=== PATIENT | male | born 1995 | race Caucasian/White ===

== ENCOUNTER 2017-03-27 15:10 | Emergency (ER) | payer MEDICAID, MEDICARE ==
[2017-03-27 15:43] VITALS: BMI 34.4
--- NOTE | 2017-03-27 15:55 | ED PDOC ---
Arrival/HPI - General Chief Complaint: Male Genitourinary Time Seen by Provider: 03/27/17 15:47 Historian: Patient - History of Present Illness Narrative History of Present Illness (Text): 03/27/17 16:03 21yr old male presents today with concerns for STD. pt states 11 months ago he had unprotected sex and now he wants to be tested. pt denies pain. denies fever/ chills. denies discharge. no cp or sob. no abdominal pain. pt denies rash. pt states he has slight itching. no urinary symptoms. no other complaints. Past Medical History - Provider Review Nursing Documentation Reviewed: Yes - Travel History Have you recently traveled outside [place] w/in the past 3 mons?: No - Infectious Disease Hx of Infectious Diseases: None - Tetanus Immunization Tetanus Immunization: Unknown - Past Medical History Past Medical History: No Previous - Cardiac Hx Hypertension: No - Pulmonary Hx Tuberculosis: No - Neurological Hx Seizures: No - Hematological/Oncological Hx Cancer: No - Genitourinary/Gynecological Hx Sexually Transmitted Diseases: No - Psychiatric Hx Psychophysiologic Disorder: Yes Hx Substance Use: Yes (angelo) Other/Comment: ADHD - Surgical History Hx Orthopedic Surgery: Yes (right wrist rods) - Anesthesia Hx Anesthesia: Yes - Suicidal Assessment Feels Threatened In Home Enviroment: No Family/Social History - Physician Review Nursing Documentation Reviewed: Yes Family/Social History: Unknown Family HX Smoking Status: Current Some Days Smoker Hx Alcohol Use: No Hx Substance Use: Yes (angelo) Allergies/Home Meds Allergies/Adverse Reactions: Allergies No Known Allergies Allergy (Verified 05/08/16 13:27) Home Medications: Home Meds Medication Instructions Recorded Confirmed No Known Home Med 03/27/17 03/27/17 Review of Systems - Review of Systems Constitutional: absent: Fatigue, Fevers Respiratory: absent: SOB, Cough Cardiovascular: absent: Chest Pain, Palpitations Gastrointestinal: absent: Abdominal Pain, Constipation, Diarrhea, Nausea, Vomiting Genitourinary Male: Other (no penile discharge or testicular tenderness). absent: Dysuria, Frequency, Hematuria Musculoskeletal: absent: Arthralgias, Back Pain, Neck Pain Skin: Pruritis. absent: Rash Neurological: absent: Headache, Dizziness Psychiatric: absent: Anxiety, Depression Physical Exam Vital Signs Reviewed: Yes Temperature: Afebrile Blood Pressure: Normal Pulse: Regular Respiratory Rate: Normal Appearance: Positive for: Well-Appearing, Non-Toxic, Comfortable Pain Distress: None Mental Status: Positive for: Alert and Oriented X 3 - Systems Exam Head: Present: Atraumatic Mouth: Present: Moist Mucous Membranes Respiratory/Chest: Present: Clear to Auscultation Cardiovascular: Present: Regular Rate and Rhythm Abdomen: No: Tenderness Genitourinary Male: Present: Normal External Genitalia, Circumcised Penis, Other ( no rash, no erythema, no lesions; chaparoned by Kailash ESQUEDA patient managed care manager.). No: Lesions, Penile Discharge, Testicle Tenderness, Penile Swelling , Masses, Erythema, Testicle Swelling Back: Present: Normal Inspection Neurological: Present: GCS=15, Speech Normal Skin: Present: Warm, Dry, Normal Color. No: Rashes Psychiatric: Present: Alert, Oriented x 3 Medical Decision Making ED Course and Treatment: 03/27/17 16:11 pt is non toxic well appearing; no distress. wants std testing. no complaints. GC/Chlamydia sent. advised patient to f/u with PMD and CLINIC. advised immediate return if symptoms worsen,persist or if new symptoms develop. impression; STD concern, pruritis f/u with pmd return if symptoms worsen,persist or if new symptom develop. Disposition/Present on Arrival - Present on Arrival Any Indicators Present on Arrival: No History of DVT/PE: No History of Uncontrolled Diabetes: No Urinary Catheter: No History of Decub. Ulcer: No History Surgical Site Infection Following: None - Disposition Have Diagnosis and Disposition been Completed?: Yes Diagnosis: Concern about STD in male without diagnosis Disposition: HOME/ ROUTINE Disposition Time: 15:49 Patient Plan: Discharge Condition: GOOD Discharge Instructions (ExitCare): Safe Sex (ED) Additional Instructions: Follow up with the primary care physician/clinic within the next 2 days. return immediately if symptoms worsen,persist or if new symptoms develop. Referrals: [facility] [place]] - Follow up with primary
[2017-03-27 15:59] VITALS: BP 131/81; PULSE 81; RESP 16; TEMP 97.9; O2SAT 98
== END 2017-03-27 16:10 | disposition home or self-care (01) ==
LOC: ED 15:10
DX: Z71.1 Person with feared health complaint in whom no diagnosis is made (principal)

== ENCOUNTER 2017-12-30 05:37 | Emergency (ER) | payer SELFPAY ==
[2017-12-30 05:37] VITALS: BMI 29.2
[2017-12-30 05:45] VITALS: TEMP 98.1
--- NOTE | 2017-12-30 05:53 | ED PDOC ---
Arrival/HPI - General Chief Complaint: Dental Pain Time Seen by Provider: 12/30/17 05:47 Historian: Patient - History of Present Illness Narrative History of Present Illness (Text): 12/30/17 05:52 Kyle Ignacio is a 22 year old male, whose past medical history includes substance abuse, who presents to the Emergency department complaining of left lower dental pain for the past hour. Patient states he does not currently have a dentist. Patient denies any fever, chills, sore throat, headache, dizziness, or any other complaints. Time/Duration: 1 hour Symptom Onset: Gradual Symptom Course: Unchanged Activities at Onset: Light Context: Home Past Medical History - Provider Review Nursing Documentation Reviewed: Yes - Infectious Disease Hx of Infectious Diseases: None - Tetanus Immunization Tetanus Immunization: Unknown - Past Medical History Past Medical History: No Previous - Cardiac Hx Hypertension: No - Pulmonary Hx Tuberculosis: No - Neurological Hx Seizures: No - Hematological/Oncological Hx Cancer: No - Genitourinary/Gynecological Hx Sexually Transmitted Diseases: No - Psychiatric Hx Psychophysiologic Disorder: Yes Hx Substance Use: Yes (angelo) Other/Comment: ADHD - Surgical History Hx Orthopedic Surgery: Yes (right wrist rods) - Anesthesia Hx Anesthesia: Yes - Suicidal Assessment Feels Threatened In Home Enviroment: No Family/Social History - Physician Review Nursing Documentation Reviewed: Yes Family/Social History: Unknown Family HX Smoking Status: Current Some Days Smoker Hx Alcohol Use: No Hx Substance Use: Yes (angelo) Allergies/Home Meds Allergies/Adverse Reactions: Allergies No Known Allergies Allergy (Verified 05/08/16 13:27) Review of Systems - Physician Review All systems were reviewed & negative as marked: Yes - Review of Systems Constitutional: Normal. absent: Fevers Eyes: Normal ENT: Other (+left lower dental pain) Respiratory: Normal. absent: SOB, Cough Cardiovascular: Normal. absent: Chest Pain Gastrointestinal: Normal. absent: Abdominal Pain, Diarrhea, Nausea, Vomiting Genitourinary Male: Normal. absent: Dysuria, Frequency, Hematuria, Urinary Output Changes Musculoskeletal: Normal. absent: Back Pain, Neck Pain Skin: Normal. absent: Rash Neurological: Normal. absent: Headache, Dizziness Endocrine: Normal Hemo/Lymphatic: Normal Psychiatric: Normal Physical Exam Vital Signs Reviewed: Yes Vital Signs Temp Pulse Resp BP Pulse Ox 12/30/17 05:43 98.1 F 68 17 132/60 97 Temperature: Afebrile Blood Pressure: Normal Pulse: Regular Respiratory Rate: Normal Appearance: Positive for: Well-Appearing, Non-Toxic, Comfortable Pain Distress: None Mental Status: Positive for: Alert and Oriented X 3 - Systems Exam Head: Present: Atraumatic, Normocephalic Pupils: Present: PERRL Extroacular Muscles: Present: EOMI Conjunctiva: Present: Normal Mouth: Present: Moist Mucous Membranes, Other (Dental caries to left posterior molar, no gingival erythema or abscess noted) Pharnyx: Present: Normal. No: ERYTHEMA, EXUDATE, TONSILS ENLARGED, Peritonsilar Swelling, Uvular Deviation, Muffled/Hoarse Voice, Strider, Soft Palate/Uvular Edema Neck: Present: Normal Range of Motion. No: Meningeal Signs, MIDLINE TENDERNESS , Paraspinal Tenderness Upper Extremity: Present: Normal Inspection. No: Cyanosis, Edema Lower Extremity: Present: Normal Inspection. No: Edema Neurological: Present: GCS=15, CN II-XII Intact, Speech Normal Skin: Present: Warm, Dry, Normal Color. No: Rashes Psychiatric: Present: Alert, Oriented x 3, Normal Insight, Normal Concentration Medical Decision Making ED Course and Treatment: 12/30/17 05:52 Impression: 22 year old male complaining of left lower dental pain x1 hour. Plan: -- Toradol -- Reassess and disposition Progress Notes: - Medication Orders Current Medication Orders: Discontinued Medications Ketorolac Tromethamine (Toradol) 60 mg IM ONCE ONE Stop: 12/30/17 05:53 - Scribe Statement The provider has reviewed the documentation as recorded by the Lillian Mckeon Provider Scribe Attestation: All medical record entries made by the Scribe were at my direction and personally dictated by me. I have reviewed the chart and agree that the record accurately reflects my personal performance of the history, physical exam, medical decision making, and the department course for this patient. I have also personally directed, reviewed, and agree with the discharge instructions and disposition. Disposition/Present on Arrival - Present on Arrival Any Indicators Present on Arrival: No History of DVT/PE: No History of Uncontrolled Diabetes: No Urinary Catheter: No History of Decub. Ulcer: No History Surgical Site Infection Following: None - Disposition Have Diagnosis and Disposition been Completed?: Yes Diagnosis: Toothache, Dental caries Disposition: HOME/ ROUTINE Disposition Time: 05:57 Patient Plan: Discharge Condition: GOOD Discharge Instructions (ExitCare): Tooth Decay, Adult (DC), Dental Pain (DC) Additional Instructions: Must follow up with your dentist today Prescriptions: Ibuprofen [Motrin] 600 mg PO Q8 PRN #12 tab PRN Reason: Pain, Moderate (4-7) Forms: [employer] (Japanese)
[2017-12-30 06:23] VITALS: BP 135/60; PULSE 65; RESP 18; O2SAT 100
== END 2017-12-30 06:15 | disposition home or self-care (01) ==
LOC: ED 05:37
DX: K02.9 Dental caries, unspecified (principal); K08.89 Other specified disorders of teeth and supporting structures
CPT/HCPCS: 96372; 99282; J1885

== ENCOUNTER 2018-01-16 23:45 | Emergency (ER) | payer SELFPAY ==
[2018-01-16 23:58] VITALS: BP 127/87; PULSE 72; RESP 18; TEMP 98.6; O2SAT 99; BMI 31.2
== END 2018-01-17 00:10 | disposition left against medical advice (07) ==
LOC: ED 23:45
DX: Z02.89 Encounter for other administrative examinations (principal); L98.9 Disorder of the skin and subcutaneous tissue, unspecified

== ENCOUNTER 2018-01-20 12:51 | Emergency (ER) | payer SELFPAY ==
[2018-01-20 13:18] VITALS: BMI 25.0
--- NOTE | 2018-01-20 13:25 | ED PDOC ---
Arrival/HPI - General Historian: Patient - History of Present Illness Time/Duration: Prior to Arrival Symptom Onset: Sudden Symptom Course: Unchanged - General Chief Complaint: Psychiatric Evaluation Time Seen by Provider: 01/20/18 12:52 - History of Present Illness Narrative History of Present Illness (Text): 01/20/18 13:20 22 year old male, whose PMH includes substance abuse and is currently homeless, who presents to the emergency department, brought in by law enforcement due to locking himself in the bathroom of a [employer], prior to arrival. Police report patient refused to open the bathroom door and became agitated. Patient is currently denying any ETOH use or substance use. upon er, pt treatening staff very agited and state "i know karate"Patient denies other complaints. 01/20/18 18:41 (Ender Wood) Past Medical History - Provider Review Nursing Documentation Reviewed: Yes - Infectious Disease Hx of Infectious Diseases: None - Tetanus Immunization Tetanus Immunization: Unknown - Past Medical History Past Medical History: No Previous - Cardiac Hx Hypertension: No - Pulmonary Hx Tuberculosis: No - Neurological Hx Seizures: No - Hematological/Oncological Hx Cancer: No - Genitourinary/Gynecological Hx Sexually Transmitted Diseases: No - Psychiatric Hx Psychophysiologic Disorder: Yes Hx Substance Use: Yes (angelo) Other/Comment: ADHD - Surgical History Hx Orthopedic Surgery: Yes (right wrist rods) - Anesthesia Hx Anesthesia: Yes - Suicidal Assessment Feels Threatened In Home Enviroment: No Family/Social History - Physician Review Nursing Documentation Reviewed: Yes Family/Social History: Unknown Family HX Smoking Status: Current Some Days Smoker Hx Alcohol Use: No Hx Substance Use: Yes (angelo) Allergies/Home Meds Allergies/Adverse Reactions: Allergies No Known Allergies Allergy (Verified 05/08/16 13:27) Home Medications: Home Meds Medication Instructions Recorded Confirmed Unobtainable 01/21/18 01/21/18 Review of Systems - Physician Review All systems were reviewed & negative as marked: Yes - Review of Systems Respiratory: absent: SOB Cardiovascular: absent: Chest Pain Psychiatric: Other (agitated ) Physical Exam Vital Signs Reviewed: Yes Temperature: Afebrile Blood Pressure: Hypertensive Pulse: Regular Respiratory Rate: Normal Appearance: Positive for: Unkept Pain Distress: None Mental Status: Positive for: Alert and Oriented X 3, Agitated - Systems Exam Head: Present: Atraumatic, Normocephalic Pupils: Present: PERRL Extroacular Muscles: Present: EOMI Conjunctiva: Present: Normal Neurological: Present: GCS=15, CN II-XII Intact, Speech Normal Skin: Present: Warm, Dry, Normal Color. No: Rashes Psychiatric: Present: Alert, Oriented x 3, Normal Insight, Normal Concentration , Agitated Vital Signs Temp Pulse Resp BP Pulse Ox 01/21/18 07:00 98.7 F 72 18 142/86 98 01/21/18 05:00 85 16 129/79 99 01/21/18 01:00 89 16 127/79 100 01/20/18 20:00 98.4 F 89 18 129/82 100 01/20/18 17:14 80 18 124/72 96 01/20/18 15:11 76 18 129/84 97 01/20/18 13:09 98.5 F 82 18 139/92 H 99 Medical Decision Making - Lab Interpretations I have reviewed the lab results: Yes ED Course and Treatment: 01/20/18 20:[address] Valle by Dr. Dorantes for pending [facility] screener. (Anthony Valle) 01/20/18 Impression: 22 year old male who is agitated ro tox vs pysch Plan: -- Labs -- Urinalysis -- Reassess and disposition Progress Notes: 01/20/18 13:30 Patient became agitated at bedside but has calmed down and is currently eating a sandwich. 01/20/18 14:20 EKG: Ordered, reviewed, and independently interpreted the EKG. Rate : 80 BPM Rhythm : NSR Interpretation : No ST-segment elevations or depressions, no T-wave inversions, normal intervals. 01/20/18 14:20 Chest X-ray: Creator : Bladimir Lynn MD COMPARISON: 05/06/2016 FINDINGS: LUNGS: No active pulmonary disease. PLEURA: No significant pleural effusion identified, no pneumothorax apparent. CARDIOVASCULAR: Normal. OSSEOUS STRUCTURES: No significant abnormalities. VISUALIZED UPPER ABDOMEN: Normal. OTHER FINDINGS: None. IMPRESSION: No active disease. 01/20/18 15:26 pt again agited in er, threatening staff, threatening to attack staff. siddharth rod called. crsis worker bedside. pt sedated for safety of himself and staff. case discussed with dry mill worker, request screener. 01/20/18 15:28 pt medically cleared for pysch assessment and admission. 01/20/18 18:50 pt endorsed to [employer] pending [facility] screener. pt observed sleeping in nad ( Ender Wood) - Lab Interpretations Lab Results: 01/20/18 14:00 01/20/18 14:00 Lab Results 01/20/18 14:00: Alcohol, Quantitative < 10 01/20/18 14:00: Salicylates < 1 L, Acetaminophen < 10.0 L 01/20/18 14:00: Sodium 141, Potassium 4.0, Chloride 104, Carbon Dioxide 26, Anion Gap 15, BUN 11, Creatinine 0.9, Est GFR ( Amer) > 60, Est GFR (Non- Af Amer) > 60, Random Glucose 125 H, Calcium 9.4, Magnesium 2.1, Total Bilirubin 0.6, AST 38, ALT 22, Alkaline Phosphatase 40, Total Creatine Kinase 419 H, CK-MB (CK-2) 2.3, CK-MB (CK-2) % Cancelled, Total Protein 6.8, Albumin 4.2, Globulin 2.6, Albumin/Globulin Ratio 1.6 01/20/18 14:00: WBC 7.8, RBC 4.31, Hgb 13.3 L, Hct 38.1 L, MCV 88.4, MCH 30.9, MCHC 34.9, RDW 11.9, Plt Count 259, MPV 9.6, Gran % 68.8 H, Lymph % (Auto) 21.5 L, [place] % (Auto) 7.5 H, Eos % (Auto) 1.9, Baso % (Auto) 0.3, Gran # 5.38, Lymph # (Auto) 1.7, [place] # (Auto) 0.6, Eos # (Auto) 0.2, Baso # (Auto) 0.02 01/20/18 13:52: Urine Opiates Screen Negative, Urine Methadone Screen Negative, Ur Barbiturates Screen Negative, Ur Phencyclidine Scrn Positive H, Ur Amphetamines Screen Negative, U Benzodiazepines Scrn Negative, U Oth Cocaine Metabols Negative, U Cannabinoids Screen Negative 01/20/18 13:52: Urine Color Yellow, Urine Appearance Sl cloudy, Urine pH 7.0, Ur Specific [place] 1.020, Urine Protein 30 H, Urine Glucose (UA) Negative, Urine Ketones Trace H, Urine Blood Negative, Urine Nitrate Negative, Urine Bilirubin Negative, Urine Urobilinogen 4.0 H, Ur Leukocyte Esterase Negative, Urine RBC Negative, Urine WBC Negative, Hyaline Casts 0 - 2 - RAD Interpretation Radiology Orders: 01/20/18 13:50 CXR [CHEST PORTABLE] [RAD] Stat - Medication Orders Current Medication Orders: Discontinued Medications Diphenhydramine HCl (Benadryl) 50 mg PO STAT STA Stop: 01/21/18 05:59 Last Admin: 01/21/18 06:04 Dose: 50 mg Haloperidol (Haldol) 10 mg PO STAT STA PRN Reason: Protocol Stop: 01/21/18 05:59 Last Admin: 01/21/18 06:05 Dose: 10 mg Lorazepam (Ativan) 2 mg IM ONCE ONE PRN Reason: Protocol Stop: 01/20/18 13:41 Last Admin: 01/20/18 13:52 Dose: Lorazepam (Ativan) 2 mg IM ONCE ONE PRN Reason: Protocol Stop: 01/20/18 22:04 Last Admin: 01/20/18 22:28 Dose: 2 mg IM Administration Charges Document 01/20/18 22:28 AD (Rec: 01/20/18 22:59 AD [id number]) Injection Site MAR Injection Site Right Deltoid Charges for Administration # of IM Administrations 1 Lorazepam (Ativan) 3 mg PO ONCE ONE PRN Reason: Protocol Stop: 01/21/18 05:59 Last Admin: 01/21/18 06:04 Dose: 3 mg Ziprasidone (Geodon Inj) 20 mg IM STAT STA PRN Reason: Protocol Stop: 01/20/18 13:41 Last Admin: 01/20/18 13:52 Dose: IM Administration Charges Document 01/20/18 13:52 SRE (Rec: 01/20/18 13:52 SRE [id number]) Charges for Administration # of IM Administrations 1 Ziprasidone (Geodon Inj) 20 mg IM STAT STA PRN Reason: Protocol Stop: 01/20/18 22:04 Last Admin: 01/20/18 22:25 Dose: 20 mg IM Administration Charges Document 01/20/18 22:25 AD (Rec: 01/20/18 22:58 AD [id number]) Injection Site MAR Injection Site Left Deltoid Charges for Administration # of IM Administrations 1 Ziprasidone (Geodon Inj) 20 mg IM STAT STA PRN Reason: Protocol Stop: 01/21/18 05:27 Last Admin: 01/21/18 06:09 Dose: - Scribe Statement The provider has reviewed the documentation as recorded by the Scribe - Scribe Statement Olinda Queevdo Provider Scribe Attestation: All medical record entries made by the Scribe were at my direction and personally dictated by me. I have reviewed the chart and agree that the record accurately reflects my personal performance of the history, physical exam, medical decision making, and the department course for this patient. I have also personally directed, reviewed, and agree with the discharge instructions and disposition. (Ender Wood) Disposition/Present on Arrival - Present on Arrival Any Indicators Present on Arrival: No History of DVT/PE: No History of Uncontrolled Diabetes: No Urinary Catheter: No History of Decub. Ulcer: No History Surgical Site Infection Following: None - Disposition Have Diagnosis and Disposition been Completed?: Yes Disposition Time: 07:00 - Disposition Diagnosis: Substance abuse, Agitation Disposition: HOSPITALIZED Condition: STABLE Forms: [employer] (Ugandan)
[2018-01-20 13:57] LABS: URINE APPEARANCE SL CLOUDY (CLEAR); URINE BILIRUBIN NEGATIVE (NEGATIVE); URINE BLOOD NEGATIVE (NEGATIVE); URINE COLOR YELLOW (YELLOW); URINE GLUCOSE (UA) NEGATIVE (NEGATIVE); URINE LEUKOCYTE ESTERASE NEGATIVE Leu/uL (NEGATIVE); URINE PROTEIN 30 mg/dL (<30 mg/dL)
[2018-01-20 14:00] LABS: URINE RBC NEGATIVE /hpf (0-2); URINE WBC NEGATIVE /hpf (0-6)
[2018-01-20 14:01] LABS: URINE HYALINE CAST 0 - 2 /hpf
--- NOTE | 2018-01-20 14:15 | RAD ---
Date of service: 01/20/2018 HISTORY: elvin COMPARISON: 05/06/2016 FINDINGS: LUNGS: No active pulmonary disease. PLEURA: No significant pleural effusion identified, no pneumothorax apparent. CARDIOVASCULAR: Normal. OSSEOUS STRUCTURES: No significant abnormalities. VISUALIZED UPPER ABDOMEN: Normal. OTHER FINDINGS: None. IMPRESSION: No active disease.
[2018-01-20 14:23] LABS: BASO # 0.02 K/mm3 (0.0-2.0); BASO % 0.3 % (0.0-3.0); EOS # 0.2 (0.0-0.7); EOS % 1.9 % (1.5-5.0); GRAN # 5.38 (1.4-6.5); GRAN % 68.8 % (50.0-68.0); HEMOGLOBIN 13.3 g/dL (14.0-18.0); LYMPH # 1.7 (1.2-3.4); LYMPH % 21.5 % (22.0-35.0); MEAN CELL VOLUME 88.4 fl (80.0-105.0); MEAN CORPUSCULAR HEMOGLOBIN 30.9 pg (25.0-35.0); MEAN CORPUSCULAR HGB CONC 34.9 g/dl (31.0-37.0); MEAN PLATELET VOLUME 9.6 fl (7.0-11.0); MONO # 0.6 (0.1-0.6); MONO % 7.5 % (1.0-6.0); RBC 4.31 10^6/uL (3.5-6.1); RED CELL DISTRIBUTION WIDTH 11.9 % (11.5-14.5); WHITE BLOOD COUNT 7.8 10^3/ul (4.5-11.0)
[2018-01-20 14:27] LABS: BARBITURATES, UR NEGATIVE (NEGATIVE); BENZODIAZEPINES, UR NEGATIVE (NEGATIVE); OPIATES, UR NEGATIVE (NEGATIVE); PHENCYCLIDINE, UR POSITIVE (NEGATIVE)
[2018-01-20 14:28] LABS: ALB/GLOB RATIO 1.6 (1.1-1.8); ALBUMIN 4.2 g/dL (3.0-4.8); ALT/SGPT 22 U/L (7-56); AST/SGOT 38 U/L (17-59); BLOOD UREA NITROGEN 11 mg/dL (7-21); CALCIUM 9.4 mg/dL (8.4-10.5); GFR AFRICAN-AMERICAN > 60; GFR NON-AFRICAN AMERICAN > 60
[2018-01-20 14:29] LABS: ACETAMINOPHEN < 10.0 ug/ml (10.0-20.0); SALICYLATE < 1 mg/dL (2.0-20.0)
[2018-01-20 15:04] LABS: CK-MB 2.3 ng/mL (0.0-3.6)
--- NOTE | 2018-01-20 19:23 | CARD ---
APPROVED REPORT Date of service: 01/20/2018 EKG Measurement Heart [id number] <Conclusion> Normal sinus rhythm with sinus arrhythmia Normal ECG
[2018-01-20] MEDS ORDERED: DiphenhydrAMINE 50 mg/ml Inj ONE (20:39)
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
--- NOTE | 2018-01-21 19:31 | ED PDOC ---
Physical Exam Vital Signs Reviewed: Yes Vital Signs Temp Pulse Resp BP Pulse Ox 01/21/18 21:20 97.7 F 97 H 17 106/65 98 01/21/18 18:26 61 20 120/72 98 01/21/18 16:43 98 F 69 18 120/92 H 100 01/21/18 13:55 74 18 108/68 98 01/21/18 13:00 76 18 120/72 100 01/21/18 11:00 98 F 84 18 137/82 96 01/21/18 09:39 74 18 138/86 97 01/21/18 07:00 98.7 F 72 18 142/86 98 01/21/18 05:00 85 16 129/79 99 01/21/18 01:00 89 16 127/79 100 01/20/18 20:00 98.4 F 89 18 129/82 100 01/20/18 17:14 80 18 124/72 96 01/20/18 15:11 76 18 129/84 97 01/20/18 13:09 98.5 F 82 18 139/92 H 99 Temperature: Afebrile Blood Pressure: Normal Pulse: Regular Respiratory Rate: Normal Appearance: Positive for: Well-Appearing, Non-Toxic, Comfortable Pain Distress: None Mental Status: Positive for: Alert and Oriented X 3 - Systems Exam Head: Present: Atraumatic, Normocephalic Pupils: Present: PERRL Extroacular Muscles: Present: EOMI Conjunctiva: Present: Normal Mouth: Present: Moist Mucous Membranes Neck: Present: Normal Range of Motion Respiratory/Chest: Present: Clear to Auscultation, Good Air Exchange. No: Respiratory Distress, Accessory Muscle Use Cardiovascular: Present: Regular Rate and Rhythm, Normal S1, S2. No: Murmurs Abdomen: No: Tenderness, Distention, Peritoneal Signs Back: Present: Normal Inspection Upper Extremity: Present: Normal Inspection. No: Cyanosis, Edema Lower Extremity: Present: Normal Inspection. No: Edema Neurological: Present: GCS=15, CN II-XII Intact, Speech Normal Skin: Present: Warm, Dry, Normal Color. No: Rashes Psychiatric: Present: Alert, Oriented x 3, Normal Insight, Normal Concentration Medical Decision Making ED Course and Treatment: 01/21/18 19:10 Case endorsed to me by Dr. Wood for pending reassessment. Patient was seen in the Emergency Department earlier for psychiatric evaluation and was has been admitted to the psychiatry unit at [facility]. Patient is currently resting in bed in no acute distress. Patient presents no new complaints. 01/21/18 21:55 Pt in no acute distress, pt transferred via EMS to [facility]. - Lab Interpretations Lab Results: 01/20/18 14:00 01/20/18 14:00 Lab Results 01/20/18 14:00: Alcohol, Quantitative < 10 01/20/18 14:00: Salicylates < 1 L, Acetaminophen < 10.0 L 01/20/18 14:00: Sodium 141, Potassium 4.0, Chloride 104, Carbon Dioxide 26, Anion Gap 15, BUN 11, Creatinine 0.9, Est GFR ( Amer) > 60, Est GFR (Non- Af Amer) > 60, Random Glucose 125 H, Calcium 9.4, Magnesium 2.1, Total Bilirubin 0.6, AST 38, ALT 22, Alkaline Phosphatase 40, Total Creatine Kinase 419 H, CK-MB (CK-2) 2.3, CK-MB (CK-2) % Cancelled, Total Protein 6.8, Albumin 4.2, Globulin 2.6, Albumin/Globulin Ratio 1.6 01/20/18 14:00: WBC 7.8, RBC 4.31, Hgb 13.3 L, Hct 38.1 L, MCV 88.4, MCH 30.9, MCHC 34.9, RDW 11.9, Plt Count 259, MPV 9.6, Gran % 68.8 H, Lymph % (Auto) 21.5 L, [place] % (Auto) 7.5 H, Eos % (Auto) 1.9, Baso % (Auto) 0.3, Gran # 5.38, Lymph # (Auto) 1.7, [place] # (Auto) 0.6, Eos # (Auto) 0.2, Baso # (Auto) 0.02 01/20/18 13:52: Urine Opiates Screen Negative, Urine Methadone Screen Negative, Ur Barbiturates Screen Negative, Ur Phencyclidine Scrn Positive H, Ur Amphetamines Screen Negative, U Benzodiazepines Scrn Negative, U Oth Cocaine Metabols Negative, U Cannabinoids Screen Negative 01/20/18 13:52: Urine Color Yellow, Urine Appearance Sl cloudy, Urine pH 7.0, Ur Specific [place] 1.020, Urine Protein 30 H, Urine Glucose (UA) Negative, Urine Ketones Trace H, Urine Blood Negative, Urine Nitrate Negative, Urine Bilirubin Negative, Urine Urobilinogen 4.0 H, Ur Leukocyte Esterase Negative, Urine RBC Negative, Urine WBC Negative, Hyaline Casts 0 - 2 - RAD Interpretation Radiology Orders: 01/20/18 13:50 CXR [CHEST PORTABLE] [RAD] Stat - Medication Orders Current Medication Orders: Discontinued Medications Diphenhydramine HCl (Benadryl) 50 mg PO STAT STA Stop: 01/21/18 05:59 Last Admin: 01/21/18 06:04 Dose: 50 mg Haloperidol (Haldol) 10 mg PO STAT STA PRN Reason: Protocol Stop: 01/21/18 05:59 Last Admin: 01/21/18 06:05 Dose: 10 mg Lorazepam (Ativan) 2 mg IM ONCE ONE PRN Reason: Protocol Stop: 01/20/18 13:41 Last Admin: 01/20/18 13:52 Dose: Lorazepam (Ativan) 2 mg IM ONCE ONE PRN Reason: Protocol Stop: 01/20/18 22:04 Last Admin: 01/20/18 22:28 Dose: 2 mg IM Administration Charges Document 01/20/18 22:28 AD (Rec: 01/20/18 22:59 AD [id number]) Injection Site MAR Injection Site Right Deltoid Charges for Administration # of IM Administrations 1 Lorazepam (Ativan) 3 mg PO ONCE ONE PRN Reason: Protocol Stop: 01/21/18 05:59 Last Admin: 01/21/18 06:04 Dose: 3 mg Lorazepam (Ativan) 2 mg PO ONCE STA Stop: 01/21/18 21:08 Ziprasidone (Geodon Inj) 20 mg IM STAT STA PRN Reason: Protocol Stop: 01/20/18 13:41 Last Admin: 01/20/18 13:52 Dose: IM Administration Charges Document 01/20/18 13:52 SRE (Rec: 01/20/18 13:52 SRE [id number]) Charges for Administration # of IM Administrations 1 Ziprasidone (Geodon Inj) 20 mg IM STAT STA PRN Reason: Protocol Stop: 01/20/18 22:04 Last Admin: 01/20/18 22:25 Dose: 20 mg IM Administration Charges Document 01/20/18 22:25 AD (Rec: 01/20/18 22:58 AD [id number]) Injection Site MAR Injection Site Left Deltoid Charges for Administration # of IM Administrations 1 Ziprasidone (Geodon Inj) 20 mg IM STAT STA PRN Reason: Protocol Stop: 01/21/18 05:27 Last Admin: 01/21/18 06:09 Dose: - Scribe Statement The provider has reviewed the documentation as recorded by the Scribe Noe Lou. All medical record entries made by the Scribe were at my direction and personally dictated by me. I have reviewed the chart and agree that the record accurately reflects my personal performance of the history, physical exam, medical decision making, and the department course for this patient. I have also personally directed, reviewed, and agree with the discharge instructions and disposition. Disposition/Present on Arrival - Present on Arrival Any Indicators Present on Arrival: No History of DVT/PE: No History of Uncontrolled Diabetes: No Urinary Catheter: No History of Decub. Ulcer: No History Surgical Site Infection Following: None - Disposition Have Diagnosis and Disposition been Completed?: Yes Diagnosis: Substance abuse, Agitation Disposition: Transfer [facility] Disposition Time: 20:30 Condition: STABLE Forms: [employer] (Chinese)
[2018-01-21 21:29] VITALS: BP 106/65; PULSE 97; TEMP 97.7
[2018-01-22 03:16] VITALS: RESP 18; O2SAT 97
== END 2018-01-21 21:30 | disposition short-term general hospital (02) ==
LOC: ED 12:51
DX: F19.10 Other psychoactive substance abuse, uncomplicated (principal); R45.1 Restlessness and agitation; Z59.0 Homelessness
CPT/HCPCS: 71045; 80053; 81001; 82550; 82553; 83735; 85025; 90791; 93005; 96372; 99285; G0480; J2060; J3486

== ENCOUNTER 2018-01-24 03:59 | Emergency (ER) | payer SELFPAY ==
[2018-01-24 04:00] VITALS: BMI 25.0
[2018-01-24 04:08] VITALS: O2SAT 100
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
[2018-01-24 04:53] VITALS: BP 138/61; PULSE 87; RESP 17; TEMP 97.8
== END 2018-01-24 04:53 | disposition home or self-care (01) ==
LOC: ED 03:59
DX: M54.9 Dorsalgia, unspecified (principal); G89.29 Other chronic pain

== ENCOUNTER 2018-01-24 11:46 | Emergency (ER) | payer SELFPAY ==
[2018-01-24 11:54] VITALS: BMI 36.2
[2018-01-24 12:03] VITALS: RESP 18; TEMP 97.2; O2SAT 98
--- NOTE | 2018-01-24 12:33 | ED PDOC ---
Arrival/HPI - General Chief Complaint: Substance Abuse Time Seen by Provider: 01/24/18 12:26 Historian: Patient - History of Present Illness Narrative History of Present Illness (Text): 01/24/18 12:30 22 year old male, whose past medical history includes substance abuse, presents to the emergency department with paranoia, secondary to PCP use. Patient called EMS himself after unknowingly smoking a PCP cigarette. Patient states he felt unwell and paranoid. Patient states that now he is no longer high and feels much better, and would like to go home. Patient denies wanting to hurt himself or others. Patient denies any fever, chills, headache, dizziness, chest pain, shortness of breath, cough, abdominal pain, nausea, vomiting, diarrhea, back pain, neck pain, urinary/bowel changes, or any other complaint. Time/Duration: Prior to Arrival Symptom Onset: Gradual Symptom Course: Unchanged Context: Home Past Medical History - Provider Review Nursing Documentation Reviewed: Yes - Infectious Disease Hx of Infectious Diseases: None - Tetanus Immunization Tetanus Immunization: Unknown - Past Medical History Past Medical History: No Previous - Cardiac Hx Hypertension: No - Pulmonary Hx Tuberculosis: No - Neurological Hx Seizures: No - Hematological/Oncological Hx Cancer: No - Genitourinary/Gynecological Hx Sexually Transmitted Diseases: No - Psychiatric Hx Psychophysiologic Disorder: Yes Hx Substance Use: Yes (angelo) Other/Comment: ADHD. ETOH. SUBSTANCE ABUSE - Surgical History Hx Orthopedic Surgery: Yes (right wrist rods) - Anesthesia Hx Anesthesia: Yes - Suicidal Assessment Feels Threatened In Home Enviroment: No Family/Social History - Physician Review Nursing Documentation Reviewed: Yes Family/Social History: No Known Family HX Smoking Status: Current Some Days Smoker Hx Alcohol Use: No Hx Substance Use: Yes (angelo) Substance used: marijuana Allergies/Home Meds Allergies/Adverse Reactions: Allergies No Known Allergies Allergy (Verified 01/24/18 04:02) Home Medications: Home Meds Medication Instructions Recorded Confirmed No Known Home Med 01/24/18 01/24/18 Review of Systems - Physician Review All systems were reviewed & negative as marked: Yes - Review of Systems Constitutional: Normal. absent: Fevers, Night Sweats Eyes: Normal ENT: Normal Respiratory: Normal. absent: SOB, Cough Cardiovascular: Normal. absent: Chest Pain Gastrointestinal: Normal. absent: Abdominal Pain, Diarrhea, Nausea, Vomiting Genitourinary Male: Normal Musculoskeletal: Normal. absent: Back Pain, Neck Pain Skin: Normal Neurological: Normal. absent: Headache, Dizziness Endocrine: Normal Hemo/Lymphatic: Normal Psychiatric: Normal Physical Exam - Physical Exam Narrative Physical Exam (Text): 01/24/18 12:34 Gen: VS reviewed, alert, well developed, well nourished, nontoxic, mild distress. ENT: normal pharynx. Eye: EOMI, PERRL. Neck: no JVD, supple, no adenopathy. CV: regular rate, regular rhythm, no rubs, no murmur, no gallops, S1, S2, pulses equal and strong. Pulm: no distress, clear to auscultation, no wheeze, no rhonchi, breath sounds equal, no rales. Abd: soft, nontender, no guarding, no rebound, no rigidity, normal bowel sounds. Ext: no edema. Skin: good color, no rash, no cyanosis. Psych: responds appropriately to questions, normal affect. Neuro: oriented x 3, CN2-12 intact grossly, motor intact, sensation intact. Vital Signs Reviewed: Yes Vital Signs Temp Pulse Resp BP Pulse Ox 01/24/18 13:27 84 18 118/79 98 01/24/18 11:46 97.2 F L 86 18 125/73 98 Temperature: Afebrile Blood Pressure: Normal Pulse: Regular Respiratory Rate: Normal Appearance: Positive for: Well-Appearing, Non-Toxic, Comfortable Pain Distress: None Mental Status: Positive for: Alert and Oriented X 3 Medical Decision Making ED Course and Treatment: 01/24/18 12:35 Impression: 22 year old male presents to the emergency department with paranoia , secondary to PCP use. Plan: -- Reassess and disposition Prior Visits: Notes and results from previous visits were reviewed. Progress Notes: 01/24/18 12:36 01/24/18 13:13 girlfriend, jing, sober adult, is in the ED at this time to assume care and take patient home. patient is of sound mind and sensorium, oriented x 4 and stable for dc. - Scribe Statement The provider has reviewed the documentation as recorded by the Scribe Riley Gee All medical record entries made by the Scribe were at my direction and personally dictated by me. I have reviewed the chart and agree that the record accurately reflects my personal performance of the history, physical exam, medical decision making, and the department course for this patient. I have also personally directed, reviewed, and agree with the discharge instructions and disposition. Disposition/Present on Arrival - Present on Arrival Any Indicators Present on Arrival: No History of DVT/PE: No History of Uncontrolled Diabetes: No Urinary Catheter: No History of Decub. Ulcer: No History Surgical Site Infection Following: None - Disposition Have Diagnosis and Disposition been Completed?: Yes Diagnosis: PCP (phencyclidine) abuse Disposition: HOME/ ROUTINE Disposition Time: 13:13 Condition: STABLE Discharge Instructions (ExitCare): Drug Abuse and Drug Addiction (DC) Print Language: INDONESIAN Additional Instructions: [place] RASHID, thank you for letting us take care of you today. Your provider was Dr. Armando Groves and you were treated for SUBSTANCE ABUSE. The emergency medical care you received today was directed at your acute symptoms. If you were prescribed any medication, please fill it and take as directed. It may take several days for your symptoms to resolve. Return to the Emergency Department if your symptoms worsen, do not improve, or if you have any other problems. Please contact your doctor or call one of the physicians/clinics you have been referred to that are listed on the Patient Visit Information form that is included in your discharge packet. Bring any paperwork you were given at discharge with you along with any medications you are taking to your follow up visit. Our treatment cannot replace ongoing medical care by a primary care provider outside of the emergency department. Thank you for allowing the [facility] team to be part of your care today. If you had an X-Ray or CT scan: A Radiologist will review the ED reading if any change in treatment is needed we will contact you. If you had a blood, urine, or wound culture: It will take several days for the results, if any change in treatment is needed we will contact you. If you had an STI test: It will take 48 hours for the results. Please call after 1 week if you have not heard back. Referrals: [facility] [Outside] - Follow up with primary FAMILY PROVIDER,NO [Primary Care Provider] - Follow up with primary Citlaly Dodge MD [Medical Doctor] - Follow up with primary Forms: [employer] (Sri [place]ankan)
[2018-01-24 13:27] VITALS: BP 118/79; PULSE 84
== END 2018-01-24 13:27 | disposition home or self-care (01) ==
LOC: ED 11:46
DX: F16.10 Hallucinogen abuse, uncomplicated (principal)

== ENCOUNTER 2018-02-02 05:01 | Emergency (ER) | payer MEDICARE, MEDICAID ==
[2018-02-02 05:02] VITALS: BMI 36.2
[2018-02-02 05:05] VITALS: BP 135/79; PULSE 89; RESP 16
[2018-02-02 05:07] VITALS: TEMP 98
--- NOTE | 2018-02-02 05:21 | ED PDOC ---
Arrival/HPI - General Chief Complaint: Back Pain Time Seen by Provider: 02/02/18 05:13 Historian: Patient - History of Present Illness Narrative History of Present Illness (Text): 02/02/18 05:20 Kyle Ignacio is a 22 year old male, whose past medical history includes substance abuse, who presents to the Emergency department complaining of chronic back pain today. Patient states symptoms are similar to previous episodes of back pain and notes he strained his back working all day. Patient is able to ambulate without difficulty. Patient denies any paresthesias, weakness/tingling in the extremities, fever, urinary symptoms, or any other complaints. Time/Duration: Other (today) Symptom Onset: Gradual Symptom Course: Unchanged Activities at Onset: Light Past Medical History - Provider Review Nursing Documentation Reviewed: Yes - Infectious Disease Hx of Infectious Diseases: None - Tetanus Immunization Tetanus Immunization: Unknown - Past Medical History Past Medical History: No Previous - Cardiac Hx Hypertension: No - Pulmonary Hx Tuberculosis: No - Neurological Hx Seizures: No - Hematological/Oncological Hx Cancer: No - Genitourinary/Gynecological Hx Sexually Transmitted Diseases: No - Psychiatric Hx Psychophysiologic Disorder: No Hx Substance Use: No (angelo) Other/Comment: DENIES - Surgical History Hx Orthopedic Surgery: Yes (right wrist rods) - Anesthesia Hx Anesthesia: Yes Hx Anesthesia Reactions: No - Suicidal Assessment Feels Threatened In Home Enviroment: No Family/Social History - Physician Review Nursing Documentation Reviewed: Yes Family/Social History: Unknown Family HX Smoking Status: Former Smoker Hx Alcohol Use: No Hx Substance Use: No (angelo) Substance used: marijuana Allergies/Home Meds Allergies/Adverse Reactions: Allergies No Known Allergies Allergy (Verified 01/30/18 23:17) Review of Systems - Physician Review All systems were reviewed & negative as marked: Yes - Review of Systems Constitutional: Normal. absent: Fevers Eyes: Normal ENT: Normal Respiratory: Normal. absent: SOB, Cough Cardiovascular: Normal. absent: Chest Pain Gastrointestinal: Normal. absent: Abdominal Pain, Diarrhea, Nausea, Vomiting Genitourinary Male: Normal. absent: Dysuria, Frequency, Hematuria, Urinary Output Changes Musculoskeletal: Back Pain. absent: Neck Pain Skin: Normal. absent: Rash Neurological: Normal. absent: Headache, Dizziness Endocrine: Normal Hemo/Lymphatic: Normal Psychiatric: Normal Physical Exam Vital Signs Reviewed: Yes Vital Signs Temp Pulse Resp BP Pulse Ox 02/02/18 05:36 98 02/02/18 05:03 98.0 F 89 16 135/79 99 Temperature: Afebrile Blood Pressure: Normal Pulse: Regular Respiratory Rate: Normal Appearance: Positive for: Well-Appearing, Non-Toxic, Comfortable Pain Distress: None Mental Status: Positive for: Alert and Oriented X 3 - Systems Exam Head: Present: Atraumatic, Normocephalic Pupils: Present: PERRL Extroacular Muscles: Present: EOMI Conjunctiva: Present: Normal Mouth: Present: Moist Mucous Membranes Neck: Present: Normal Range of Motion. No: Meningeal Signs, MIDLINE TENDERNESS , Paraspinal Tenderness Respiratory/Chest: Present: Clear to Auscultation, Good Air Exchange. No: Respiratory Distress, Accessory Muscle Use Cardiovascular: Present: Regular Rate and Rhythm, Normal S1, S2. No: Murmurs Abdomen: No: Tenderness, Distention, Peritoneal Signs Back: Present: Normal Inspection. No: CVA Tenderness, Midline Tenderness, Paraspinal Tenderness Upper Extremity: Present: Normal Inspection. No: Cyanosis, Edema Lower Extremity: Present: Normal Inspection. No: Edema Neurological: Present: GCS=15, CN II-XII Intact, Speech Normal, Motor Func Grossly Intact, Normal Sensory Function, Normal Cerebellar Funct, Gait Normal, Memory Normal Skin: Present: Warm, Dry, Normal Color. No: Rashes Psychiatric: Present: Alert, Oriented x 3, Normal Insight, Normal Concentration Medical Decision Making ED Course and Treatment: 02/02/18 05:20 Impression: 22 year old male presented for chronic back pain today. Differential Diagnosis included but are not limited to: strain vs. musculoskeletal pain Plan: -- Motrin -- Reassess and disposition Progress Notes: 02/02/18 05:22 Pt is well-appearing, in no acute distress. Able to ambulate without difficulty. Patient is stable for discharge. Patient was instructed to follow up with physician/clinic in 1-2 days or return if symptoms persist/worsen or new concerning symptoms arise. - Medication Orders Current Medication Orders: Discontinued Medications Ibuprofen (Motrin Tab) 600 mg PO STAT STA Stop: 02/02/18 05:21 Last Admin: 02/02/18 05:33 Dose: 600 mg - Scribe Statement The provider has reviewed the documentation as recorded by the Scribe Awilda Mike All medical record entries made by the Scribe were at my direction and personally dictated by me. I have reviewed the chart and agree that the record accurately reflects my personal performance of the history, physical exam, medical decision making, and the department course for this patient. I have also personally directed, reviewed, and agree with the discharge instructions and disposition. Disposition/Present on Arrival - Present on Arrival Any Indicators Present on Arrival: No History of DVT/PE: No History of Uncontrolled Diabetes: No Urinary Catheter: No History of Decub. Ulcer: No History Surgical Site Infection Following: None - Disposition Have Diagnosis and Disposition been Completed?: Yes Diagnosis: Back strain Disposition: HOME/ ROUTINE Disposition Time: 05:22 Patient Plan: Discharge Condition: GOOD Discharge Instructions (ExitCare): Muscle Strain (DC) Additional Instructions: Rest/no strenuous physical activity/Motrin as prescribed/follow up with your doctor Prescriptions: Ibuprofen [Motrin] 600 mg PO TID PRN #14 tab PRN Reason: Pain, Moderate (4-7) Forms: [facility] (Slovenian)
[2018-02-02 05:39] VITALS: O2SAT 98
== END 2018-02-02 05:36 | disposition home or self-care (01) ==
LOC: ED 05:01
DX: S39.012A Strain of muscle, fascia and tendon of lower back, initial encounter (principal); X58.XXXA Exposure to other specified factors, initial encounter; Z87.891 Personal history of nicotine dependence

== ENCOUNTER 2018-02-03 13:25 | Emergency (ER) | payer MEDICAID, MEDICARE ==
[2018-02-03 13:27] VITALS: BMI 36.2
== END 2018-02-03 14:01 | disposition left against medical advice (07) ==
LOC: ED 13:25
DX: Z02.89 Encounter for other administrative examinations (principal); K08.89 Other specified disorders of teeth and supporting structures

== ENCOUNTER 2018-02-06 11:08 | Emergency (ER) | payer MEDICAID, MEDICARE ==
[2018-02-06 11:09] VITALS: BMI 32.5
[2018-02-06 11:26] VITALS: TEMP 98
--- NOTE | 2018-02-06 11:34 | ED PDOC ---
Arrival/HPI - General Chief Complaint: Psychiatric Evaluation Time Seen by Provider: 02/06/18 11:10 Historian: Patient - History of Present Illness Narrative History of Present Illness (Text): 02/06/18 11:29 22yo male who present via EMS requesting for a place to stay. States he didn't sleep for 3days and is hearing sounds. States he just want to rest. Notes that he is homeless. He denies SI/HI, any other complaint. Past Medical History - Provider Review Nursing Documentation Reviewed: Yes - Infectious Disease Hx of Infectious Diseases: None - Tetanus Immunization Tetanus Immunization: Unknown - Past Medical History Past Medical History: No Previous - Cardiac Hx Cardiac Disorders: No Hx Hypertension: No - Pulmonary Hx Tuberculosis: No - Neurological Hx Seizures: No - Hematological/Oncological Hx Cancer: No - Genitourinary/Gynecological Hx Sexually Transmitted Diseases: No - Psychiatric Hx Psychophysiologic Disorder: No Hx Substance Use: No (angelo) Other/Comment: DENIES - Surgical History Hx Orthopedic Surgery: Yes (right wrist rods) - Anesthesia Hx Anesthesia: Yes Hx Anesthesia Reactions: No Hx Malignant Hyperthermia: No - Suicidal Assessment Feels Threatened In Home Enviroment: No Family/Social History - Physician Review Nursing Documentation Reviewed: Yes Family/Social History: Unknown Family HX Smoking Status: Former Smoker Hx Alcohol Use: No Hx Substance Use: No (angelo) Substance used: marijuana Allergies/Home Meds Allergies/Adverse Reactions: Allergies No Known Allergies Allergy (Verified 02/06/18 04:14) Review of Systems - Physician Review All systems were reviewed & negative as marked: Yes - Review of Systems Constitutional: Normal Eyes: Normal ENT: Normal Respiratory: Normal Cardiovascular: Normal Gastrointestinal: Normal Genitourinary Male: Normal Musculoskeletal: Normal Skin: Normal Neurological: Normal Endocrine: Normal Hemo/Lymphatic: Normal Psychiatric: Other (Hearing sound) Physical Exam Vital Signs Reviewed: Yes Vital Signs Temp Pulse Resp BP Pulse Ox 02/06/18 15:00 98 F 96 H 17 118/70 98 02/06/18 14:59 98 F 96 H 17 118/70 98 02/06/18 13:30 98 F 90 18 126/73 98 02/06/18 11:20 98 F 97 H 18 124/66 99 Temperature: Afebrile Blood Pressure: Normal Pulse: Regular Respiratory Rate: Normal Appearance: Positive for: Well-Appearing, Non-Toxic, Comfortable, Unkept Pain Distress: None Mental Status: Positive for: Alert and Oriented X 3 - Systems Exam Head: Present: Atraumatic, Normocephalic Pupils: Present: PERRL Extroacular Muscles: Present: EOMI Conjunctiva: Present: Normal Mouth: Present: Moist Mucous Membranes Neck: Present: Normal Range of Motion Respiratory/Chest: Present: Clear to Auscultation, Good Air Exchange. No: Respiratory Distress, Accessory Muscle Use Cardiovascular: Present: Regular Rate and Rhythm, Normal S1, S2. No: Murmurs Abdomen: No: Tenderness, Distention, Peritoneal Signs Back: Present: Normal Inspection Upper Extremity: Present: Normal Inspection. No: Cyanosis, Edema Lower Extremity: Present: Normal Inspection. No: Edema Neurological: Present: GCS=15, CN II-XII Intact, Speech Normal Skin: Present: Warm, Dry, Normal Color. No: Rashes Psychiatric: Present: Alert, Oriented x 3, Normal Insight, Normal Concentration Medical Decision Making ED Course and Treatment: 02/06/18 20:10 PT was seen in ED and medically cleared for psych evaluation. He was seen by TALISHA Gann and was discharged. Lab was unremarkable. UDS + PCP PT requested for food and it was given. He denied SI/HI and was hemodynamically stable. He was referred to a long-term. - Lab Interpretations Lab Results: 02/06/18 11:35 02/06/18 11:35 Lab Results 02/06/18 11:35: Alcohol, Quantitative < 10 02/06/18 11:35: Salicylates < 1 L, Acetaminophen < 10.0 L 02/06/18 11:35: Urine Opiates Screen Negative, Urine Methadone Screen Negative, Ur Barbiturates Screen Negative, Ur Phencyclidine Scrn Positive H, Ur Amphetamines Screen Negative, U Benzodiazepines Scrn Negative, U Oth Cocaine Metabols Negative, U Cannabinoids Screen Negative 02/06/18 11:35: Sodium 141, Potassium 3.9, Chloride 103, Carbon Dioxide 27, Anion Gap 15, BUN 16, Creatinine 0.9, Est GFR ( Amer) > 60, Est GFR (Non- Af Amer) > 60, Random Glucose 102, Calcium 9.5, Magnesium 2.2, Total Bilirubin 0.9, AST 62 H D, ALT 36, Alkaline Phosphatase 51, Total Protein 7.2, Albumin 4.4 , Globulin 2.8, Albumin/Globulin Ratio 1.6 02/06/18 11:35: Urine Color Yellow, Urine Appearance Clear, Urine pH 6.0, Ur Specific [place] >= 1.030, Urine Protein 30 H, Urine Glucose (UA) Negative, Urine Ketones Trace H, Urine Blood Negative, Urine Nitrate Negative, Urine Bilirubin Negative, Urine Urobilinogen 1.0 H, Ur Leukocyte Esterase Negative, Urine RBC 0 - 2, Urine WBC 0 - 2, Ur Epithelial Cells 0 - 2, Urine Bacteria Mod 02/06/18 11:35: WBC 9.2, RBC 4.44, Hgb 13.7 L, Hct 39.0 L, MCV 87.8, MCH 30.9, MCHC 35.1, RDW 12.1, Plt Count 222, MPV 10.2, Gran % 70.9 H, Lymph % (Auto) 18.8 L, [place] % (Auto) 8.9 H, Eos % (Auto) 1.2 L, Baso % (Auto) 0.2, Gran # 6.50 , Lymph # (Auto) 1.7, [place] # (Auto) 0.8 H, Eos # (Auto) 0.1, Baso # (Auto) 0.02 Disposition/Present on Arrival - Present on Arrival Any Indicators Present on Arrival: No History of DVT/PE: No History of Uncontrolled Diabetes: No Urinary Catheter: No History of Decub. Ulcer: No History Surgical Site Infection Following: None - Disposition Have Diagnosis and Disposition been Completed?: Yes Diagnosis: Substance abuse, Homelessness, Malingering Disposition: HOME/ ROUTINE Disposition Time: 16:20 Patient Plan: Discharge Condition: STABLE Discharge Instructions (ExitCare): Drug Abuse and Drug Addiction (DC) Additional Instructions: Stop using drug Go to a long-term Referrals: Citlaly Dodge MD [Medical Doctor] - Follow up with primary Forms: [employer] (Persian)
[2018-02-06 12:00] LABS: BASO # 0.02 K/mm3 (0.0-2.0); BASO % 0.2 % (0.0-3.0); EOS # 0.1 (0.0-0.7); EOS % 1.2 % (1.5-5.0); GRAN # 6.5 (1.4-6.5); GRAN % 70.9 % (50.0-68.0); HEMOGLOBIN 13.7 g/dL (14.0-18.0); LYMPH # 1.7 (1.2-3.4); LYMPH % 18.8 % (22.0-35.0); MEAN CELL VOLUME 87.8 fl (80.0-105.0); MEAN CORPUSCULAR HEMOGLOBIN 30.9 pg (25.0-35.0); MEAN CORPUSCULAR HGB CONC 35.1 g/dl (31.0-37.0); MEAN PLATELET VOLUME 10.2 fl (7.0-11.0); MONO # 0.8 (0.1-0.6); MONO % 8.9 % (1.0-6.0); RBC 4.44 10^6/uL (3.5-6.1); RED CELL DISTRIBUTION WIDTH 12.1 % (11.5-14.5); WHITE BLOOD COUNT 9.2 10^3/ul (4.5-11.0)
[2018-02-06 12:04] LABS: URINE BILIRUBIN NEGATIVE (NEGATIVE); URINE BLOOD NEGATIVE (NEGATIVE); URINE GLUCOSE (UA) NEGATIVE (NEGATIVE); URINE LEUKOCYTE ESTERASE NEGATIVE Leu/uL (NEGATIVE); URINE PROTEIN 30 mg/dL (<30 mg/dL)
[2018-02-06 12:12] LABS: ALB/GLOB RATIO 1.6 (1.1-1.8); ALBUMIN 4.4 g/dL (3.0-4.8); ALT/SGPT 36 U/L (7-56); AST/SGOT 62 U/L (17-59); BLOOD UREA NITROGEN 16 mg/dL (7-21); CALCIUM 9.5 mg/dL (8.4-10.5); GFR NON-AFRICAN AMERICAN > 60; URINE APPEARANCE CLEAR (CLEAR); URINE COLOR YELLOW (YELLOW)
[2018-02-06 12:13] LABS: ACETAMINOPHEN < 10.0 ug/ml (10.0-20.0); SALICYLATE < 1 mg/dL (2.0-20.0)
[2018-02-06 12:14] LABS: URINE BACTERIA MOD (NEG); URINE EPITHELIAL CELLS 0 - 2 /hpf (0-5); URINE RBC 0 - 2 /hpf (0-2); URINE WBC 0 - 2 /hpf (0-6)
[2018-02-06 12:19] LABS: BARBITURATES, UR NEGATIVE (NEGATIVE); BENZODIAZEPINES, UR NEGATIVE (NEGATIVE); OPIATES, UR NEGATIVE (NEGATIVE); PHENCYCLIDINE, UR POSITIVE (NEGATIVE)
[2018-02-06 14:59] VITALS: O2SAT 98
[2018-02-06 15:00] VITALS: BP 118/70; PULSE 96; RESP 17
[2018-02-06] MEDS ORDERED: Albuterol-Ipratrop 3 mg / 0.5 (3 ml) UD ONE (22:19)
== END 2018-02-06 15:01 | disposition home or self-care (01) ==
LOC: ED 11:08
DX: F19.10 Other psychoactive substance abuse, uncomplicated (principal); Z76.5 Malingerer [conscious simulation]; Z59.0 Homelessness; Z87.891 Personal history of nicotine dependence

== ENCOUNTER 2018-02-24 01:10 | Emergency (ER) | payer MEDICARE, MEDICAID ==
[2018-02-24 01:10] VITALS: BMI 32.5
--- NOTE | 2018-02-24 01:45 | ED PDOC ---
Arrival/HPI - General Chief Complaint: Back Pain Time Seen by Provider: 02/24/18 01:37 Historian: Patient - History of Present Illness Narrative History of Present Illness (Text): 02/24/18 01:51 A 22 year old male, whose history includes substance abuse, homelessness, presents to the emergency department with a complaint of upper back/neck discomfort. The patient states that he works out, lifting weights, and thinks he "over did it". The patient has a history of similar complaints in the past. The patient denies history of any fall. He is currently requesting Motrin medication only. The patient denies fevers, chills, headache, dizziness, sore throat, cough, chest pain, shortness of breath, dyspnea on exertion, abdominal pain, nausea, vomiting, diarrhea, urinary/bowel changes or any other complaint. Time/Duration: Other (Today) Symptom Onset: Gradual Symptom Course: Unchanged Activities at Onset: Rest, Light Context: Home Past Medical History - Provider Review Nursing Documentation Reviewed: Yes - Infectious Disease Hx of Infectious Diseases: None - Tetanus Immunization Tetanus Immunization: Unknown - Past Medical History Past Medical History: No Previous - Cardiac Hx Hypertension: No - Pulmonary Hx Tuberculosis: No - Neurological Hx Seizures: No - Hematological/Oncological Hx Cancer: No - Genitourinary/Gynecological Hx Sexually Transmitted Diseases: No - Psychiatric Hx Psychophysiologic Disorder: No Hx Substance Use: Yes (angelo, used to use PCP) Other/Comment: DENIES - Surgical History Hx Orthopedic Surgery: Yes (right wrist rods) - Anesthesia Hx Anesthesia: Yes Hx Anesthesia Reactions: No Hx Malignant Hyperthermia: No - Suicidal Assessment Feels Threatened In Home Enviroment: No Family/Social History - Physician Review Nursing Documentation Reviewed: Yes Family/Social History: No Known Family HX Smoking Status: Former Smoker Hx Alcohol Use: No Hx Substance Use: Yes (angelo, used to use PCP) Substance used: marijuana Allergies/Home Meds Allergies/Adverse Reactions: Allergies No Known Allergies Allergy (Verified 02/06/18 04:14) Home Medications: Home Meds Medication Instructions Recorded Confirmed Atenolol/Chlorthalidone 1 tab PO DAILY 02/11/18 02/11/18 [Atenolol/Chlorthalidone 50 mg-25 mg] MetFORMIN [glucOPHAGE] 1,000 mg PO BID 02/11/18 02/11/18 Simvastatin 20 mg PO HS 02/11/18 02/11/18 Review of Systems - Physician Review All systems were reviewed & negative as marked: Yes - Review of Systems Constitutional: absent: Fevers, Night Sweats ENT: absent: Sore Throat Respiratory: absent: SOB, Cough Cardiovascular: absent: Chest Pain, [place] Gastrointestinal: absent: Abdominal Pain, Stool Changes, Diarrhea, Nausea, Vomiting Genitourinary Male: absent: Urinary Output Changes Musculoskeletal: Back Pain, Neck Pain Neurological: absent: Headache, Dizziness Physical Exam Vital Signs Reviewed: Yes Vital Signs Temp Pulse Resp BP Pulse Ox 02/24/18 01:10 98 F 88 18 144/77 98 Temperature: Afebrile Blood Pressure: Normal Pulse: Regular Respiratory Rate: Normal Appearance: Positive for: Well-Appearing, Non-Toxic, Comfortable Pain Distress: None Mental Status: Positive for: Alert and Oriented X 3 - Systems Exam Head: Present: Atraumatic, Normocephalic Pupils: Present: PERRL Extroacular Muscles: Present: EOMI Conjunctiva: Present: Normal Mouth: Present: Moist Mucous Membranes Neck: Present: Normal Range of Motion, Other (No dorsal- spinal/ cervical tenderness.) Respiratory/Chest: Present: Clear to Auscultation, Good Air Exchange. No: Respiratory Distress, Accessory Muscle Use Cardiovascular: Present: Regular Rate and Rhythm, Normal S1, S2. No: Murmurs Abdomen: No: Tenderness, Distention, Peritoneal Signs Back: Present: Normal Inspection, Other (No dorsal- spinal tenderness.) Upper Extremity: Present: Normal Inspection. No: Cyanosis, Edema Lower Extremity: Present: Normal Inspection. No: Edema Neurological: Present: GCS=15, CN II-XII Intact, Speech Normal Skin: Present: Warm, Dry, Normal Color. No: Rashes Psychiatric: Present: Alert, Oriented x 3, Normal Insight, Normal Concentration Medical Decision Making ED Course and Treatment: 02/24/18 01:55 Impression: A 22 year old male presents to the emergency department with a complaint of neck /back discomfort. Plan: -- Toradol -- Reassess and disposition Prior Visits: Notes and results from previous visits were reviewed. Progress Notes: 02/24/18 01:59 On reevaluation the patient feels better and is in no acute distress. I have discussed the results and plan with the patient, who expresses understanding. Patient given the opportunity to ask question, all questions were answered and there is agreement with the plan to discharge the patient home. Patient is stable for discharge. Patient was instructed to follow up with physician/clinic in 1-2 days or return if symptoms persist/worsen or new concerning symptoms arise. - Medication Orders Current Medication Orders: Discontinued Medications Ketorolac Tromethamine (Toradol) 60 mg IM ONCE ONE Stop: 02/24/18 01:45 Last Admin: 02/24/18 01:56 Dose: 60 mg MAR Pain Assessment Document 02/24/18 01:56 IT (Rec: 02/24/18 01:57 IT [id number]) Pain Reassessment Is this a pain reassessment? No Presence of Pain Presence of Pain Yes Pain Scale Used Pain Scale Used Numeric Location Left, Right or Bilateral Bilateral Description Description Constant IM Administration Charges Document 02/24/18 01:56 IT (Rec: 02/24/18 01:57 IT [id number]) Injection Site MAR Injection Site Left Deltoid Charges for Administration # of IM Administrations 1 - Scribe Statement The provider has reviewed the documentation as recorded by the Lillian Lucero Provider Scribe Attestation: All medical record entries made by the Scribe were at my direction and personally dictated by me. I have reviewed the chart and agree that the record accurately reflects my personal performance of the history, physical exam, medical decision making, and the department course for this patient. I have also personally directed, reviewed, and agree with the discharge instructions and disposition. Disposition/Present on Arrival - Present on Arrival Any Indicators Present on Arrival: No History of DVT/PE: No History of Uncontrolled Diabetes: No Urinary Catheter: No History of Decub. Ulcer: No History Surgical Site Infection Following: None - Disposition Have Diagnosis and Disposition been Completed?: Yes Diagnosis: Muscle strain Disposition: HOME/ ROUTINE Disposition Time: 01:50 Condition: STABLE Discharge Instructions (ExitCare): Muscle Strain (DC) Additional Instructions: Avoid strenuous physical activity next few days/medication as prescribed/follow up with your doctor this week Prescriptions: Ibuprofen [Motrin Tab] 800 mg PO TID PRN #15 tab PRN Reason: Pain, Moderate (4-7) Forms: [employer] (Serbian)
[2018-02-24 02:16] VITALS: BP 138/72; PULSE 79; RESP 17; TEMP 98; O2SAT 99
== END 2018-02-24 02:15 | disposition home or self-care (01) ==
LOC: ED 01:10
DX: S29.012A Strain of muscle and tendon of back wall of thorax, initial encounter (principal); X50.9XXA Other and unspecified overexertion or strenuous movements or postures, initial encounter; Y92.9 Unspecified place or not applicable
CPT/HCPCS: 96372; 99282; J1885

== ENCOUNTER 2018-03-17 00:21 | Emergency (ER) | payer MEDICARE, MEDICAID ==
[2018-03-17 00:28] VITALS: BMI 28.3
--- NOTE | 2018-03-17 03:58 | ED PDOC ---
Arrival/HPI - General Chief Complaint: Headache Time Seen by Provider: 03/17/18 01:04 Historian: Patient - History of Present Illness Narrative History of Present Illness (Text): 03/17/18 03:54 A 22 year old male, well known to emergency department, presents to the emergency department complaining of headache and back pain. He notes that the headache started 1 hour prior to arrival, it is not the worse of his life and not sudden in onset. He denies any focal neurological deficits. He states that it feels like a throbbing sensation in the back of his head and headache has now resolved. He also complains of lower back pain without any trauma, difficulty ambulating, urostasis or encopresis. The patient notes that overall his back pain has resolved and that he is mainly here for somewhere to sleep. The patient denies fevers, chills, dizziness, chest pain, shortness of breath, dyspnea on exertion, cough, sore throat, abdominal pain, nausea, vomiting, diarrhea, neck pain, urinary/bowel changes, trauma/injury, or any other complaints. Time/Duration: 1 hour Symptom Course: Resolved Activities at Onset: Rest, Light Context: Home Past Medical History - Provider Review Nursing Documentation Reviewed: Yes - Infectious Disease Hx of Infectious Diseases: None - Tetanus Immunization Tetanus Immunization: Unknown - Past Medical History Past Medical History: No Previous - Cardiac Hx Hypertension: No - Pulmonary Hx Tuberculosis: No - Neurological Hx Seizures: No - Hematological/Oncological Hx Cancer: No - Genitourinary/Gynecological Hx Sexually Transmitted Diseases: No - Psychiatric Hx Psychophysiologic Disorder: No Hx Substance Use: Yes (angelo, used to use PCP) Other/Comment: DENIES - Surgical History Hx Orthopedic Surgery: Yes (right wrist rods) - Anesthesia Hx Anesthesia: Yes Hx Anesthesia Reactions: No Hx Malignant Hyperthermia: No - Suicidal Assessment Feels Threatened In Home Enviroment: No Family/Social History - Physician Review Nursing Documentation Reviewed: Yes Family/Social History: No Known Family HX Smoking Status: Former Smoker Hx Alcohol Use: No Hx Substance Use: Yes (angelo, used to use PCP) Substance used: marijuana Allergies/Home Meds Allergies/Adverse Reactions: Allergies No Known Allergies Allergy (Verified 03/17/18 00:28) Home Medications: Home Meds Medication Instructions Recorded Confirmed Atenolol/Chlorthalidone 1 tab PO DAILY 02/11/18 03/17/18 [Atenolol/Chlorthalidone 50 mg-25 mg] MetFORMIN [glucOPHAGE] 1,000 mg PO BID 02/11/18 03/17/18 RX: Simvastatin 20 mg PO HS 02/11/18 03/17/18 Review of Systems - Physician Review All systems were reviewed & negative as marked: Yes - Review of Systems Constitutional: absent: Fevers Respiratory: absent: SOB, Cough Cardiovascular: absent: Chest Pain, [place] Gastrointestinal: absent: Abdominal Pain, Diarrhea, Nausea, Vomiting Genitourinary Male: absent: Urinary Output Changes Musculoskeletal: absent: Back Pain, Neck Pain Neurological: absent: Headache, Dizziness Physical Exam Temperature: Afebrile Blood Pressure: Normal Pulse: Regular Respiratory Rate: Normal Appearance: Positive for: Well-Appearing, Non-Toxic, Comfortable Pain Distress: None Mental Status: Positive for: Alert and Oriented X 3 - Systems Exam Head: Present: Atraumatic, Normocephalic Pupils: Present: PERRL Extroacular Muscles: Present: EOMI Conjunctiva: Present: Normal Mouth: Present: Moist Mucous Membranes Pharnyx: Present: Normal Neck: Present: Normal Range of Motion. No: Meningeal Signs, MIDLINE TENDERNESS, Paraspinal Tenderness, JVD, Lymphadenopathy Respiratory/Chest: Present: Clear to Auscultation, Good Air Exchange. No: Respiratory Distress, Accessory Muscle Use Cardiovascular: Present: Regular Rate and Rhythm, Normal S1, S2. No: Murmurs Abdomen: No: Tenderness, Distention, Peritoneal Signs Back: Present: Normal Inspection Upper Extremity: Present: Normal Inspection. No: Cyanosis, Edema Lower Extremity: Present: Normal Inspection. No: Edema Neurological: Present: GCS=15, CN II-XII Intact, Speech Normal, Motor Func Grossly Intact, Normal Sensory Function, Normal Cerebellar Funct, Gait Normal, Memory Normal Skin: Present: Warm, Dry, Normal Color. No: Rashes Lymphatic: No: Cervical Adenopathy, Axillary Adenopathy, Inguinal Adenopathy Psychiatric: Present: Alert, Oriented x 3, Normal Insight, Normal Concentration, Normal Mood. No: Agitated, Depressed Mood, Suicidal Ideation, Homicidal Ideation, Hallucinations, Intoxicated, Lethargic Medical Decision Making ED Course and Treatment: 03/17/18 03:59 Impression: A 22 year old male presents to the emergency department with a complaint of headache and lower back pain which have resolved. The patient notes that he just wants a place to stay. Plan: -- Reassess and disposition Prior Visits: Notes and results from previous visits were reviewed. Progress Notes: 03/17/18 04:00 pt remains without complaint and stable neuro exam clear for d/c home - Scribe Statement The provider has reviewed the documentation as recorded by the Scribe Dea Lucero Provider Scribe Attestation: All medical record entries made by the Scribe were at my direction and personally dictated by me. I have reviewed the chart and agree that the record accurately reflects my personal performance of the history, physical exam, medical decision making, and the department course for this patient. I have also personally directed, reviewed, and agree with the discharge instructions and disposition. Disposition/Present on Arrival - Present on Arrival Any Indicators Present on Arrival: No History of DVT/PE: No History of Uncontrolled Diabetes: No Urinary Catheter: No History of Decub. Ulcer: No History Surgical Site Infection Following: None - Disposition Have Diagnosis and Disposition been Completed?: Yes Diagnosis: Headache Disposition: HOME/ ROUTINE Disposition Time: 02:00 Condition: GOOD Discharge Instructions (ExitCare): Headache, Adult Additional Instructions: [place] RASHID, thank you for letting us take care of you today. Your provider was Richard Hicks and you were treated for psych. The emergency medical care you received today was directed at your acute symptoms. If you were prescribed any medication, please fill it and take as directed. It may take several days for your symptoms to resolve. Return to the Emergency Department if your symptoms worsen, do not improve, or if you have any other problems. Please contact your doctor or call one of the physicians/clinics you have been referred to that are listed on the Patient Visit Information form that is included in your discharge packet. Bring any paperwork you were given at discharge with you along with any medications you are taking to your follow up visit. Our treatment cannot replace ongoing medical care by a primary care provider outside of the emergency department. Thank you for allowing the [facility] team to be part of your care today. If you had an X-Ray or CT scan: A Radiologist will review the ED reading if any change in treatment is needed we will contact you. If you had a blood, urine, or wound culture: It will take several days for the results, if any change in treatment is needed we will contact you. If you had an STI test: It will take 48 hours for the results. Please call after 1 week if you have not heard back. Referrals: Amirah Alfaro MD [Staff Provider] - Follow up with primary Citlaly Dodge MD [Medical Doctor] - Follow up with primary Forms: [employer] (Kyrgyz)
[2018-03-17 06:04] VITALS: RESP 18; TEMP 98.7; O2SAT 100
[2018-03-17 07:21] VITALS: BP 127/75; PULSE 84
== END 2018-03-17 06:00 | disposition home or self-care (01) ==
LOC: ED 00:21
DX: R51 Headache (principal); Z87.891 Personal history of nicotine dependence

== ENCOUNTER 2018-03-20 22:40 | Emergency (ER) | payer MEDICAID, MEDICARE ==
[2018-03-20 22:40] VITALS: BMI 30.8
== END 2018-03-20 23:52 | disposition left against medical advice (07) ==
LOC: ED 22:40
DX: Z02.89 Encounter for other administrative examinations (principal); Z00.00 Encounter for general adult medical examination without abnormal findings

== ENCOUNTER 2018-03-25 03:42 | Emergency (ER) | payer MEDICAID, MEDICARE ==
[2018-03-25 03:43] VITALS: BMI 30.8
[2018-03-25 04:11] VITALS: RESP 18; TEMP 97.3
--- NOTE | 2018-03-25 04:24 | ED PDOC ---
Arrival/HPI - General Chief Complaint: Flu-like Symptoms Time Seen by Provider: 03/25/18 03:43 Historian: Patient - History of Present Illness Narrative History of Present Illness (Text): 03/25/18 04:18 22 year old male smoker, whose past medical history includes substance abuse and homelessness, whose been seen approximately 18 times in the last 2 months for miscellaneous complaints, presents to the emergency department complaining of cough, cold, and nasal congestion for the past couple of days. Patient from my assessment wants a place to sleep. Patient asking for food upon arrival. He is ambulatory with a steady gait. Patient denies any fever, chills, chest pain, shortness of breath, nausea, vomiting, diarrhea, urinary symptoms, back pain, neck pain, headache, dizziness, or any other complaints. Time/Duration: Other (couple days) Symptom Onset: Gradual Symptom Course: Unchanged Activities at Onset: Light Past Medical History - Provider Review Nursing Documentation Reviewed: Yes - Infectious Disease Hx of Infectious Diseases: None - Tetanus Immunization Tetanus Immunization: Unknown - Past Medical History Past Medical History: No Previous - Cardiac Hx Hypertension: No - Pulmonary Hx Tuberculosis: No - Neurological Hx Seizures: No - Hematological/Oncological Hx Cancer: No - Genitourinary/Gynecological Hx Sexually Transmitted Diseases: No - Psychiatric Hx Psychophysiologic Disorder: No Hx Substance Use: Yes (angelo, used to use PCP) Other/Comment: DENIES - Surgical History Hx Orthopedic Surgery: Yes (right wrist rods) - Anesthesia Hx Anesthesia: Yes Hx Anesthesia Reactions: No Hx Malignant Hyperthermia: No - Suicidal Assessment Feels Threatened In Home Enviroment: No Family/Social History - Physician Review Nursing Documentation Reviewed: Yes Family/Social History: No Known Family HX Smoking Status: Former Smoker Hx Alcohol Use: No Hx Substance Use: Yes (angelo, used to use PCP) Substance used: marijuana Allergies/Home Meds Allergies/Adverse Reactions: Allergies No Known Allergies Allergy (Verified 03/17/18 00:28) Review of Systems - Physician Review All systems were reviewed & negative as marked: Yes - Review of Systems Constitutional: absent: Fevers, Other (Chills) ENT: Sinus Congestion Respiratory: Cough. absent: SOB Cardiovascular: absent: Chest Pain Gastrointestinal: absent: Diarrhea, Nausea, Vomiting Genitourinary Male: absent: Dysuria, Frequency, Hematuria Musculoskeletal: absent: Back Pain, Neck Pain Neurological: absent: Headache, Dizziness Physical Exam Vital Signs Reviewed: Yes Vital Signs Temp Pulse Resp BP Pulse Ox 03/25/18 04:09 97.3 F L 76 18 137/69 99 Temperature: Afebrile Blood Pressure: Normal Pulse: Regular Respiratory Rate: Normal Appearance: Positive for: Well-Appearing, Non-Toxic, Comfortable Pain Distress: None Mental Status: Positive for: Alert and Oriented X 3 - Systems Exam Head: Present: Atraumatic, Normocephalic Pupils: Present: PERRL Extroacular Muscles: Present: EOMI Conjunctiva: Present: Normal Mouth: Present: Moist Mucous Membranes Neck: Present: Normal Range of Motion Respiratory/Chest: Present: Clear to Auscultation, Good Air Exchange. No: Re spiratory Distress, Accessory Muscle Use Cardiovascular: Present: Regular Rate and Rhythm, Normal S1, S2. No: Murmurs Abdomen: No: Tenderness, Distention, Peritoneal Signs Back: Present: Normal Inspection Upper Extremity: Present: Normal Inspection. No: Cyanosis, Edema Lower Extremity: Present: Normal Inspection. No: Edema Neurological: Present: GCS=15, CN II-XII Intact, Speech Normal Skin: Present: Warm, Dry, Normal Color. No: Rashes Psychiatric: Present: Alert, Oriented x 3, Normal Insight, Normal Concentration Medical Decision Making ED Course and Treatment: 03/25/18 04:18 Impression: 22 year old male presents complaining of could, cold, and nasal congestion for the past couple of days. Plan: -- Reassess and disposition Prior Visits: Notes and results from previous visits were reviewed. Progress Notes: 03/25/18 04:22 Patient is seen charging is phone and repeatedly asking for some food to eat. bedseeking malingering behavior. stable for dc. 03/25/18 04:27 On reevaluation the patient is in no acute distress. I have discussed the plan with the patient, who expresses understanding. Patient given the opportunity to ask question, all questions were answered and there is agreement with the plan to discharge. Patient is stable for discharge. Patient was instructed to follow up with physician/clinic in 1-2 days or return if symptoms persist/worsen or new concerning symptoms arise. 03/25/18 06:55 - Scribe Statement The provider has reviewed the documentation as recorded by the Lillian Heart Provider Scribe Attestation: All medical record entries made by the Scribe were at my direction and personally dictated by me. I have reviewed the chart and agree that the record accurately reflects my personal performance of the history, physical exam, medical decision making, and the department course for this patient. I have also personally directed, reviewed, and agree with the discharge instructions and disposition. Disposition/Present on Arrival - Present on Arrival Any Indicators Present on Arrival: No History of DVT/PE: No History of Uncontrolled Diabetes: No Urinary Catheter: No History of Decub. Ulcer: No History Surgical Site Infection Following: None - Disposition Have Diagnosis and Disposition been Completed?: Yes Diagnosis: Malingering, Viral syndrome Disposition: HOME/ ROUTINE Disposition Time: 04:30 Condition: STABLE Discharge Instructions (ExitCare): Viral Syndrome (DC) Additional Instructions: please follow up with your doctor/clinic. return to er any er with worsening symptoms or concerns. Prescriptions: RX: Ibuprofen [Motrin Tab] 400 mg PO Q6 PRN #20 tab PRN Reason: Pain, Mild (1-3) Referrals: [facility] [Outside] - Follow up with primary [facility] [Outside] - Follow up with primary Forms: [employer] (Latvian)
[2018-03-25 05:12] VITALS: BP 130/72; PULSE 75; O2SAT 100
== END 2018-03-25 04:30 | disposition home or self-care (01) ==
LOC: ED 03:42
DX: B34.9 Viral infection, unspecified (principal); Z76.5 Malingerer [conscious simulation]; Z59.0 Homelessness

== ENCOUNTER 2018-04-13 21:17 | Emergency (ER) | payer MEDICAID, MEDICARE ==
[2018-04-13 21:17] VITALS: BMI 30.8
== END 2018-04-13 22:40 | disposition left against medical advice (07) ==
LOC: ED 21:17
DX: Z02.89 Encounter for other administrative examinations (principal); T14.90XA Injury, unspecified, initial encounter

== ENCOUNTER 2018-04-26 17:23 | Emergency (ER) | payer MEDICAID ==
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
[2018-04-26 17:48] VITALS: BMI 27.1
[2018-04-26] MEDS ORDERED: Sodium Chloride 0.9% 1,000 ML IV STA (17:49)
[2018-04-26 17:52] VITALS: RESP 18
[2018-04-26] MEDS ORDERED: Sodium Chloride 0.9% 1,000 ML IV SCH (18:00)
--- NOTE | 2018-04-26 18:20 | RAD ---
HISTORY: medical clearance COMPARISON: Chest x-ray performed 01/20/18 TECHNIQUE: Chest, one view. FINDINGS: Examination limited by patient obliquity. LUNGS: No focal consolidation. Please note that chest x-ray has limited sensitivity for the detection of pulmonary masses. PLEURA: No significant pleural effusion identified. No definite pneumothorax . CARDIOVASCULAR: Heart size appears top normal. No significant atherosclerotic calcification present. OSSEOUS STRUCTURES: No acute osseous abnormality identified. VISUALIZED UPPER ABDOMEN: Unremarkable. OTHER FINDINGS: None. IMPRESSION: No focal consolidation, significant pleural effusion, or definite pneumothorax identified.
[2018-04-26 18:27] LABS: BASO # 0.03 K/mm3 (0.0-2.0); BASO % 0.4 % (0.0-3.0); EOS # 0.2 (0.0-0.7); GRAN # 4.54 (1.4-6.5); GRAN % 60.1 % (50.0-68.0); HEMOGLOBIN 13.7 g/dL (14.0-18.0); LYMPH # 2.3 (1.2-3.4); LYMPH % 30.9 % (22.0-35.0); MEAN CELL VOLUME 90.1 fl (80.0-105.0); MEAN CORPUSCULAR HEMOGLOBIN 30.9 pg (25.0-35.0); MEAN CORPUSCULAR HGB CONC 34.3 g/dl (31.0-37.0); MONO # 0.4 (0.1-0.6); MONO % 5.6 % (1.0-6.0); RBC 4.43 10^6/uL (3.5-6.1); RED CELL DISTRIBUTION WIDTH 12.2 % (11.5-14.5); WHITE BLOOD COUNT 7.6 10^3/uL (4.5-11.0)
--- NOTE | 2018-04-26 19:02 | CARD ---
APPROVED REPORT Date of service: 04/26/2018 EKG Measurement Heart [id number] CT [id number] <Conclusion> Normal sinus rhythm Early repolarization Normal ECG
[2018-04-26 19:12] VITALS: BP 133/77; PULSE 70; TEMP 98; O2SAT 97
== END 2018-04-26 19:12 | disposition home or self-care (01) ==
LOC: ED 17:23
DX: Z04.89 Encounter for examination and observation for other specified reasons (principal); Z91.14 Patient's other noncompliance with medication regimen
CPT/HCPCS: 71045; 85025; 93005; 96360; 99283; J7030

== ENCOUNTER 2018-05-09 23:52 | Emergency (ER) | payer MEDICAID ==
[2018-05-09 23:53] VITALS: BMI 27.1
== END 2018-05-10 01:02 | disposition left against medical advice (07) ==
LOC: ED 23:52
DX: Z02.89 Encounter for other administrative examinations (principal); S69.90XA Unspecified injury of unspecified wrist, hand and finger(s), initial encounter

== ENCOUNTER 2018-05-10 19:52 | Emergency (ER) | payer MEDICAID ==
[2018-05-10 19:57] VITALS: BMI 27.5
[2018-05-10 20:15] VITALS: RESP 18; TEMP 98.3; O2SAT 100
--- NOTE | 2018-05-10 21:15 | ED PDOC ---
Arrival/HPI - General Historian: Patient - History of Present Illness Narrative History of Present Illness (Text): 05/10/18 21:42 22yo male with h/o Schizophrenia bib [facility] [place] complaint of toothache and chronic lower back pain. Notes that pain has been intermittent for months now. Did not take any analgesic. Denies fever chills, trauma, focal weakness, saddle anesthesia, urinary/fecal incontinence, abdominal pain, any other complaint. <Jose E Moore A - Last Filed: 05/10/18 21:42> <Sebastián Alatorre - Last Filed: 05/11/18 04:46> - General Chief Complaint: Dental Pain Past Medical History - Provider Review Nursing Documentation Reviewed: Yes - Infectious Disease Hx of Infectious Diseases: None - Tetanus Immunization Tetanus Immunization: Unknown - Past Medical History Past Medical History: No Previous - Cardiac Hx Cardiac Disorders: No Hx Hypertension: No - Pulmonary Hx Respiratory Disorders: No Hx Tuberculosis: No - Neurological HX Cerebrovascular Accident: No Hx Seizures: No - HEENT Hx HEENT Disorder: No - Renal Hx Renal Disorder: No - Endocrine/Metabolic Hx Endocrine Disorders: No - Hematological/Oncological Hx Blood Disorders: No Hx Cancer: No - Integumentary Hx Dermatological Disorder: No - Musculoskeletal/Rheumatological Hx Musculoskeletal Disorders: No - Gastrointestinal Hx Gastrointestinal Disorders: No - Genitourinary/Gynecological Hx Genitourinary Disorders: No Hx Sexually Transmitted Diseases: No - Psychiatric Hx Depression: Yes Hx Substance Use: Yes (PCP) - Surgical History Hx Orthopedic Surgery: Yes (right wrist rods) - Anesthesia Hx Anesthesia: Yes Hx Anesthesia Reactions: No Hx Malignant Hyperthermia: No - Suicidal Assessment Feels Threatened In Home Enviroment: No <Jose E Moore A - Last Filed: 05/10/18 21:42> Family/Social History - Physician Review Nursing Documentation Reviewed: Yes Family/Social History: Unknown Family HX Smoking Status: Former Smoker Hx Alcohol Use: No Hx Substance Use: Yes (PCP) Substance used: marijuana,, cocaine <Jose E Moore A - Last Filed: 05/10/18 21:42> Allergies/Home Meds <Jose E Moore A - Last Filed: 05/10/18 21:42> <Sebastián Alatorre - Last Filed: 05/11/18 04:46> Allergies/Adverse Reactions: Allergies No Known Allergies Allergy (Verified 04/26/18 17:51) Review of Systems - Physician Review All systems were reviewed & negative as marked: Yes - Review of Systems Constitutional: Normal Eyes: Normal ENT: Other (Toothache) Respiratory: Normal Cardiovascular: Normal Gastrointestinal: Normal Genitourinary Male: Normal Musculoskeletal: Back Pain Skin: Normal Neurological: Normal Endocrine: Normal Hemo/Lymphatic: Normal Psychiatric: Normal <Diru,Happiness A - Last Filed: 05/10/18 21:42> Physical Exam Vital Signs Reviewed: Yes Vital Signs Temp Pulse Resp BP Pulse Ox 05/10/18 20:04 98.3 F 89 18 137/86 100 Temperature: Afebrile Blood Pressure: Normal Pulse: Regular Respiratory Rate: Normal Appearance: Positive for: Well-Appearing, Non-Toxic, Comfortable Pain Distress: None Mental Status: Positive for: Alert and Oriented X 3 - Systems Exam Head: Present: Atraumatic, Normocephalic Pupils: Present: PERRL Extroacular Muscles: Present: EOMI Conjunctiva: Present: Normal Mouth: Present: Moist Mucous Membranes, Normal Teeth (No llose tooth. No gum swelling noteed) Neck: Present: Normal Range of Motion Respiratory/Chest: Present: Clear to Auscultation, Good Air Exchange. No: Respiratory Distress, Accessory Muscle Use Cardiovascular: Present: Regular Rate and Rhythm, Normal S1, S2. No: Murmurs Abdomen: No: Tenderness, Distention, Peritoneal Signs Back: No: Midline Tenderness, Paraspinal Tenderness, Pain with Leg Raise Upper Extremity: Present: Normal Inspection. No: Cyanosis, Edema Lower Extremity: Present: Normal Inspection. No: Edema Neurological: Present: GCS=15, CN II-XII Intact, Speech Normal Skin: Present: Warm, Dry, Normal Color. No: Rashes Psychiatric: Present: Alert, Oriented x 3, Normal Insight, Normal Concentration <Diru,Happiness A - Last Filed: 05/10/18 21:42> Vital Signs Temp Pulse Resp BP Pulse Ox 05/10/18 21:31 81 18 135/78 100 05/10/18 20:04 98.3 F 89 18 137/86 100 <Sebastián Alatorre - Last Filed: 05/11/18 04:46> Medical Decision Making - Medication Orders Current Medication Orders: Discontinued Medications Amoxicillin (Amoxil 500 Mg Cap) 500 mg PO STAT STA; Protocol Stop: 05/10/18 21:12 Last Admin: 05/10/18 21:36 Dose: 500 mg Ibuprofen (Motrin Tab) 600 mg PO STAT STA Stop: 05/10/18 21:13 Last Admin: 05/10/18 21:36 Dose: 600 mg MAR Pain/Vitals Document 05/10/18 21:36 LA (Rec: 05/10/18 21:36 LA [id number]) Pain Reassessment Is This A Pain ReAssessment? No Sleep Is patient sleeping during reassessment? Yes Pain Scale Used Protocol: PSCALES Pain Scale Used Numeric Location Upper or Lower Lower Pain Location Body Site Back Intensity 5 Scale Used Numeric <Sebastián Alatorre - Last Filed: 05/11/18 04:46> - PA / ACCOUNTANT CERTIFIED PUBLIC / Resident Statement / has reviewed & agrees with the documentation as recorded. <Sebastián Alatorre - Last Filed: 05/11/18 04:46> Disposition/Present on Arrival - Present on Arrival Any Indicators Present on Arrival: No History of DVT/PE: No History of Uncontrolled Diabetes: No Urinary Catheter: No History of Decub. Ulcer: No History Surgical Site Infection Following: None - Disposition Have Diagnosis and Disposition been Completed?: Yes Disposition Time: 21:15 Patient Plan: Discharge <Jose E Moore - Last Filed: 05/10/18 21:42> <Sebastián Alatorre - Last Filed: 05/11/18 04:46> - Disposition Diagnosis: Toothache, Back pain Disposition: HOME/ ROUTINE Condition: STABLE Discharge Instructions (ExitCare): Low Back Pain (DC), Dental Pain Additional Instructions: Follow up with the clinic/PMD Return to ED for any new or worsening symptoms Prescriptions: RX: Amoxicillin 500 mg PO TID #21 tablet RX: Ibuprofen [Motrin Tab] 600 mg PO Q6 #15 tab Referrals: Su Carrillo MD [Primary Care Provider] - Follow up with primary Forms: [employer] ([place]ian)
[2018-05-10 21:32] VITALS: BP 135/78; PULSE 81
== END 2018-05-10 22:25 | disposition home or self-care (01) ==
LOC: ED 19:52
DX: K08.89 Other specified disorders of teeth and supporting structures (principal); M54.9 Dorsalgia, unspecified; Z87.891 Personal history of nicotine dependence